=== PATIENT | female | born 1980 | race Hispanic/Latino ===

== ENCOUNTER 2018-04-13 21:48 | Emergency (ER) | payer MEDICAID ==
[~2018-04-13] VITALS: Ht 154.9 cm; Wt 65.2 kg
[2018-04-13 23:35] LABS: HEMATOCRIT 37.1 % (37.0-47.0); HEMOGLOBIN 12.2 g/dl (12.0-16.0); IMMATURE GRANULOCYTES 0.3 % (0.0-5.0); MEAN CELL VOLUME 88.5 fL CALC (80.0-100.0); MEAN CORPUSCULAR HGB 29.1 pG CALC (26.0-32.0); MEAN CORPUSCULAR HGB CONC 32.9 g/L CALC (32.0-36.0); NEUT# 4.14 thou/uL (2.00-7.15); RED BLOOD COUNT 4.19 mill/uL (4.20-5.60); RED CELL DISTRI WIDTH 12.6 % (11.5-15.5)
[2018-04-13 23:52] LABS: ALBUMIN 4.2 g/dL (3.2-5.0); ALKALINE PHOSPHATASE 65 u/l (38-126); AMYLASE 54 u/l (30-110); ANION GAP 13 (6-22 (CALC)); BILIRUBIN, TOTAL 0.2 mg/dL (0.0-1.4); BUN 10 mg/dL (7-17); BUN/CREATININE RATIO 18 (12-20 (CALC)); CARBON DIOXIDE 27 mmol/l (22-30); CHLORIDE 104 mmol/l (95-108); CREATININE 0.6 mg/dL (0.5-1.0); GFR > 60 ML/MIN (>=60 (CALC)); GFR FOR AFR.AMER. > 60 ML/MIN (>=60 (CALC)); LIPASE 164 u/l (23-300); SGOT/AST 19 u/l (14-36); SODIUM 139 mmol/l (137-146); TOTAL PROTEIN 7.2 g/dL (6.3-8.2)
[2018-04-14 00:26] LABS: URINE BILIRUBIN - DIPSTICK NEGATIVE (NEGATIVE); URINE BLOOD DIPSTICK NEGATIVE (NEGATIVE); URINE COLOR YELLOW; URINE GLUCOSE - DIPSTICK NEGATIVE (NEGATIVE); URINE KETONE NEGATIVE (NEGATIVE); URINE LEUK ESTERASE NEGATIVE (NEGATIVE); URINE NITRITE - DIPSTICK NEGATIVE (Negative); URINE PH 6.5 (4.5-8.0); URINE PROTEIN - DIPSTICK NEGATIVE (NEG-TRACE); URINE SPECIFIC GRAVITY <=1.005; URINE UROBILINOGEN - DIPSTICK 0.2 E.U./dL (0.2)
[2018-04-14] MEDS ORDERED: PHENERGAN25 MG/TAB PO (00:51)
[2018-04-14] MEDS ORDERED: LOMOTIL2.5 MG PO (00:51)
[2018-04-14 01:02] VITALS: BP 118/69
== END 2018-04-14 01:00 | disposition home or self-care (01) ==
LOC: ED 21:48
PROVIDERS: Family Medicine
DX: A08.4 Viral intestinal infection, unspecified (principal); R11.2 Nausea with vomiting, unspecified; R19.7 Diarrhea, unspecified; R10.13 Epigastric pain

== ENCOUNTER 2018-06-06 19:06 | Emergency (ER) | payer OTHER ==
[~2018-06-06] VITALS: Ht 154.9 cm; Wt 64.8 kg
[~2018-06-06 19:06] MED LIST: LOMOTIL2.5 MG PO; PHENERGAN25 MG/TAB PO
[2018-06-06] MEDS ORDERED: CODEINE/GUAIFEN1 SOL PO (21:34)
[2018-06-06 21:40] VITALS: BP 122/70
== END 2018-06-06 21:40 | disposition home or self-care (01) ==
LOC: ED 19:06
DX: J06.9 Acute upper respiratory infection, unspecified (principal); R50.9 Fever, unspecified; R05 Cough; J34.89 Other specified disorders of nose and nasal sinuses

== ENCOUNTER 2018-11-21 13:36 | Emergency (ER) | payer OTHER ==
[~2018-11-21] VITALS: Ht 154.9 cm; Wt 75.0 kg
[~2018-11-21 13:36] MED LIST changes: +CODEINE/GUAIFEN1 SOL PO
[2018-11-21] MEDS ORDERED: AMOXICILLIN875 MG PO (15:01)
[2018-11-21 15:20] VITALS: BP 129/74
== END 2018-11-21 15:20 | disposition home or self-care (01) ==
LOC: ED 13:36
DX: J02.9 Acute pharyngitis, unspecified (principal); R50.9 Fever, unspecified; R52 Pain, unspecified

== ENCOUNTER 2018-12-02 23:46 | Observation (INO) | payer OTHER ==
[~2018-12-02] VITALS: Ht 154.9 cm; Wt 71.4 kg
[~2018-12-02 23:46] MED LIST changes: +AMOXICILLIN875 MG PO
[2018-12-03 00:31] LABS: HEMATOCRIT 36.6 % (37.0-47.0); HEMOGLOBIN 12.1 g/dl (12.0-16.0); IMMATURE GRANULOCYTES 0.5 % (0.0-5.0); MEAN CELL VOLUME 88.2 fL CALC (80.0-100.0); MEAN CORPUSCULAR HGB 29.2 pG CALC (26.0-32.0); MEAN CORPUSCULAR HGB CONC 33.1 g/L CALC (32.0-36.0); NEUT# 13.02 thou/uL (2.00-7.15); RED BLOOD COUNT 4.15 mill/uL (4.20-5.60); RED CELL DISTRI WIDTH 13.5 % (11.5-15.5)
[2018-12-03 00:41] LABS: ALBUMIN 4.1 g/dL (3.2-5.0); ALKALINE PHOSPHATASE 88 u/l (38-126); AMYLASE 78 u/l (30-110); ANION GAP 14 (6-22 (CALC)); BILIRUBIN, TOTAL 0.3 mg/dL (0.0-1.4); BUN 13 mg/dL (7-17); BUN/CREATININE RATIO 21 (12-20 (CALC)); CARBON DIOXIDE 25 mmol/l (22-30); CHLORIDE 104 mmol/l (95-108); CREATININE 0.6 mg/dL (0.5-1.0); GFR > 60 ML/MIN (>=60 (CALC)); GFR FOR AFR.AMER. > 60 ML/MIN (>=60 (CALC)); LIPASE 86 u/l (23-300); SGOT/AST 20 u/l (14-36); SODIUM 139 mmol/l (137-146); TOTAL PROTEIN 7.4 g/dL (6.3-8.2)
[2018-12-03 00:49] LABS: URINE BILIRUBIN - DIPSTICK NEGATIVE (NEGATIVE); URINE BLOOD DIPSTICK NEGATIVE (NEGATIVE); URINE COLOR YELLOW; URINE GLUCOSE - DIPSTICK NEGATIVE (NEGATIVE); URINE KETONE NEGATIVE (NEGATIVE); URINE LEUK ESTERASE NEGATIVE (NEGATIVE); URINE NITRITE - DIPSTICK NEGATIVE (Negative); URINE PROTEIN - DIPSTICK NEGATIVE (NEG-TRACE); URINE SPECIFIC GRAVITY 1.015
[2018-12-03] MEDS ORDERED: DIPHENHYDRAM25 MG PO (01:39)
[2018-12-03] MEDS ORDERED: DOCUSATE CAL240 MG PO (01:39)
[2018-12-03] MEDS ORDERED: MACROBID100 MG PO (01:40)
[2018-12-03] MEDS ORDERED: CHILD ADVI100 MG/5 M PO (01:40)
[2018-12-03] MEDS ORDERED: ONDANSETRON4 MG PO (01:41)
[2018-12-03] MEDS ORDERED: PREDNISONE10 MG PO (01:42)
[2018-12-03] MEDS ORDERED: PYRIDIUM200 MG PO (01:42)
[2018-12-03 02:34] LABS: HEMATOCRIT 33.1 % (37.0-47.0); HEMOGLOBIN 10.9 g/dl (12.0-16.0); IMMATURE GRANULOCYTES 0.6 % (0.0-5.0); MEAN CELL VOLUME 88.7 fL CALC (80.0-100.0); MEAN CORPUSCULAR HGB 29.2 pG CALC (26.0-32.0); MEAN CORPUSCULAR HGB CONC 32.9 g/L CALC (32.0-36.0); NEUT# 16.77 thou/uL (2.00-7.15); RED BLOOD COUNT 3.73 mill/uL (4.20-5.60); RED CELL DISTRI WIDTH 13.4 % (11.5-15.5)
[2018-12-03 05:25] VITALS: BP 115/63
[2018-12-03 07:55] VITALS: BP 97/55
[2018-12-03 14:35] VITALS: BP 97/59
[2018-12-03 19:42] VITALS: BP 99/48
[2018-12-04 03:53] VITALS: BP 118/57
[2018-12-04 05:25] LABS: HEMATOCRIT 34.6 % (37.0-47.0); HEMOGLOBIN 11.3 g/dl (12.0-16.0); IMMATURE GRANULOCYTES 0.5 % (0.0-5.0); MEAN CELL VOLUME 88.7 fL CALC (80.0-100.0); MEAN CORPUSCULAR HGB CONC 32.7 g/L CALC (32.0-36.0); NEUT# 5.81 thou/uL (2.00-7.15); RED BLOOD COUNT 3.9 mill/uL (4.20-5.60); RED CELL DISTRI WIDTH 13.3 % (11.5-15.5)
[2018-12-04 05:46] LABS: ALBUMIN 3.5 g/dL (3.2-5.0); ALKALINE PHOSPHATASE 80 u/l (38-126); ANION GAP 11 (6-22 (CALC)); BILIRUBIN, TOTAL 0.2 mg/dL (0.0-1.4); BUN 8 mg/dL (7-17); BUN/CREATININE RATIO 16 (12-20 (CALC)); CARBON DIOXIDE 28 mmol/l (22-30); CHLORIDE 103 mmol/l (95-108); CREATININE 0.5 mg/dL (0.5-1.0); GFR > 60 ML/MIN (>=60 (CALC)); GFR FOR AFR.AMER. > 60 ML/MIN (>=60 (CALC)); POTASSIUM 4.2 mmol/l (3.5-5.1); SGOT/AST 17 u/l (14-36); SODIUM 137 mmol/l (137-146); TOTAL PROTEIN 6.6 g/dL (6.3-8.2)
[2018-12-04 07:57] VITALS: BP 113/73
[2018-12-04 14:22] VITALS: BP 99/55
[2018-12-04 16:06] VITALS: BP 113/50
[2018-12-04 19:06] VITALS: BP 101/65
[2018-12-05 03:38] VITALS: BP 118/74
[2018-12-05 08:02] VITALS: BP 105/68
[2018-12-05 09:07] LABS: HEMATOCRIT 37.8 % (37.0-47.0); HEMOGLOBIN 12.4 g/dl (12.0-16.0); IMMATURE GRANULOCYTES 0.4 % (0.0-5.0); MEAN CELL VOLUME 88.5 fL CALC (80.0-100.0); MEAN CORPUSCULAR HGB CONC 32.8 g/L CALC (32.0-36.0); NEUT# 6.15 thou/uL (2.00-7.15); RED BLOOD COUNT 4.27 mill/uL (4.20-5.60); RED CELL DISTRI WIDTH 13.2 % (11.5-15.5)
[2018-12-05] MEDS ORDERED: LORTAB5 PO (11:32)
== END 2018-12-05 14:32 | disposition home or self-care (01) ==
LOC: ED 23:46 → ED-I 12-03 04:39 → ED 12-03 04:58 → MS2 12-03 04:59
PROVIDERS: Emergency Medicine; Nurse Practitioner Family; ADMIT Internal Medicine; ATTEND Internal Medicine
DX: K59.09 Other constipation (principal); D72.829 Elevated white blood cell count, unspecified; Z90.710 Acquired absence of both cervix and uterus; Z90.79 Acquired absence of other genital organ(s); Z90.722 Acquired absence of ovaries, bilateral; Z23 Encounter for immunization
CPT/HCPCS: G0378; Q9967

== ENCOUNTER 2019-01-07 09:19 | Emergency (ER) | payer OTHER ==
[~2019-01-07] VITALS: Ht 154.9 cm; Wt 70.0 kg
[~2019-01-07 09:19] MED LIST changes: +CHILD ADVI100 MG/5 M PO; +DIPHENHYDRAM25 MG PO; +DOCUSATE CAL240 MG PO; +LORTAB5 PO; +MACROBID100 MG PO; +ONDANSETRON4 MG PO; +PREDNISONE10 MG PO; +PYRIDIUM200 MG PO
[2019-01-07] MEDS ORDERED: ESTRADIOL1 MG PO (09:33)
[2019-01-07] MEDS ORDERED: IMIPRAM HCL PO (09:33)
[2019-01-07] MEDS ORDERED: ZITHROMAX250 MG PO (09:41)
[2019-01-07] MEDS ORDERED: CODEINE/GUAIFEN1 SOL PO (09:41)
[2019-01-07 09:50] VITALS: BP 121/71
== END 2019-01-07 10:04 | disposition home or self-care (01) ==
LOC: ED 09:19
DX: J20.9 Acute bronchitis, unspecified (principal); J04.0 Acute laryngitis

== ENCOUNTER 2019-02-16 12:41 | Emergency (ER) | payer OTHER ==
[~2019-02-16 12:41] MED LIST changes: +ESTRADIOL1 MG PO; +IMIPRAM HCL PO; +ZITHROMAX250 MG PO
[2019-02-16] MEDS ORDERED: PREDNISONE50 MG PO (13:43)
[2019-02-16] MEDS ORDERED: ZYRTEC10 M5 PO (13:43)
[2019-02-16 14:09] VITALS: BP 115/65
== END 2019-02-16 14:09 | disposition home or self-care (01) ==
LOC: ED 12:41
DX: T78.40XA Allergy, unspecified, initial encounter (principal); X58.XXXA Exposure to other specified factors, initial encounter

== ENCOUNTER 2019-03-13 09:38 | Emergency (ER) | payer OTHER ==
[~2019-03-13 09:38] MED LIST changes: +PREDNISONE50 MG PO; +ZYRTEC10 M5 PO
[2019-03-13 10:26] VITALS: BP 122/77
== END 2019-03-13 10:26 | disposition home or self-care (01) ==
LOC: ED 09:38
DX: T78.40XA Allergy, unspecified, initial encounter (principal); X58.XXXA Exposure to other specified factors, initial encounter

== ENCOUNTER 2020-02-26 09:36 | Emergency (ER) | payer OTHER ==
[~2020-02-26] VITALS: Ht 154.9 cm; Wt 75.0 kg
[2020-02-26 10:30] LABS: HEMATOCRIT 40.3 % (37.0-47.0); HEMOGLOBIN 13.1 g/dl (12.0-16.0); IMMATURE GRANULOCYTES 0.3 % (0.0-5.0); MEAN CELL VOLUME 90.6 fL CALC (80.0-100.0); MEAN CORPUSCULAR HGB 29.4 pG CALC (26.0-32.0); MEAN CORPUSCULAR HGB CONC 32.5 g/dL CAL (32.0-36.0); NEUT# 9.18 thou/uL (2.00-7.15); RED BLOOD COUNT 4.45 mill/uL (4.20-5.60); RED CELL DISTRI WIDTH 12.9 % (11.5-15.5)
[2020-02-26 10:39] LABS: URINE BILIRUBIN - DIPSTICK NEGATIVE (NEGATIVE); URINE BLOOD DIPSTICK NEGATIVE (NEGATIVE); URINE COLOR YELLOW; URINE GLUCOSE - DIPSTICK NEGATIVE (NEGATIVE); URINE KETONE NEGATIVE (NEGATIVE); URINE LEUK ESTERASE NEGATIVE (NEGATIVE); URINE NITRITE - DIPSTICK NEGATIVE (Negative); URINE PROTEIN - DIPSTICK NEGATIVE (NEG-TRACE); URINE UROBILINOGEN - DIPSTICK 0.2 E.U./dL (0.2)
[2020-02-26 10:51] LABS: ALBUMIN 4.2 g/dL (3.2-5.0); ALKALINE PHOSPHATASE 90 u/l (38-126); ANION GAP 10 (6-22 (CALC)); BUN 10 mg/dL (7-17); BUN/CREATININE RATIO 18 (12-20 (CALC)); CARBON DIOXIDE 27 mmol/l (22-30); CHLORIDE 106 mmol/l (95-108); CREATININE 0.6 mg/dL (0.5-1.0); GFR > 60 ML/MIN (>=60 (CALC)); GFR FOR AFR.AMER. > 60 ML/MIN (>=60 (CALC)); LIPASE 77 u/l (23-300); POTASSIUM 4.1 mmol/l (3.5-5.1); SODIUM 138 mmol/l (137-146); TOTAL PROTEIN 7.6 g/dL (6.3-8.2)
[2020-02-26 10:53] LABS: BILIRUBIN, TOTAL 0.4 mg/dL (0.0-1.4); SGOT/AST 31 u/l (14-36)
[2020-02-26 12:50] VITALS: BP 117/80
[2020-02-26] MEDS ORDERED: ONDANSETRON4 MG PO (12:55)
[2020-02-26] MEDS ORDERED: PHENERGAN25 MG/TAB PO (12:55)
== END 2020-02-26 13:09 | disposition home or self-care (01) ==
LOC: ED 09:36
PROVIDERS: Family Medicine
DX: K52.9 Noninfective gastroenteritis and colitis, unspecified (principal); Z20.822 Contact with and (suspected) exposure to COVID-19
CPT/HCPCS: Q9967

== ENCOUNTER 2020-04-20 04:55 | Emergency (ER) | payer OTHER ==
[~2020-04-20] VITALS: Ht 157.5 cm; Wt 73.0 kg
[2020-04-20] MEDS ORDERED: OMEPRAZOLE DR40 MG PO (05:23)
[2020-04-20] MEDS ORDERED: DICLOFENAC75 MG PO (05:23)
[2020-04-20 05:58] LABS: HEMATOCRIT 38.6 % (37.0-47.0); HEMOGLOBIN 12.6 g/dl (12.0-16.0); IMMATURE GRANULOCYTES 0.3 % (0.0-5.0); MEAN CORPUSCULAR HGB 29.4 pG CALC (26.0-32.0); MEAN CORPUSCULAR HGB CONC 32.6 g/dL CAL (32.0-36.0); NEUT# 4.07 thou/uL (2.00-7.15); RED BLOOD COUNT 4.29 mill/uL (4.20-5.60)
[2020-04-20 06:11] LABS: ALKALINE PHOSPHATASE 97 u/l (38-126); AMYLASE 60 u/l (30-110); ANION GAP 12 (6-22 (CALC)); BUN 12 mg/dL (7-17); BUN/CREATININE RATIO 20 (12-20 (CALC)); CARBON DIOXIDE 28 mmol/l (22-30); CHLORIDE 102 mmol/l (95-108); CREATININE 0.6 mg/dL (0.5-1.0); GFR > 60 ML/MIN (>=60 (CALC)); GFR FOR AFR.AMER. > 60 ML/MIN (>=60 (CALC)); LIPASE 125 u/l (23-300); POTASSIUM 3.8 mmol/l (3.5-5.1); SODIUM 138 mmol/l (137-146); TOTAL PROTEIN 7.3 g/dL (6.3-8.2)
[2020-04-20 06:21] LABS: BILIRUBIN, TOTAL 0.6 mg/dL (0.0-1.4); SGOT/AST 66 u/l (14-36)
[2020-04-20 09:01] VITALS: BP 123/78
== END 2020-04-20 09:26 | disposition home or self-care (01) ==
LOC: ED 04:55
PROVIDERS: Emergency Medicine
DX: R10.13 Epigastric pain (principal); Z90.710 Acquired absence of both cervix and uterus; Z79.890 Hormone replacement therapy
CPT/HCPCS: Q9967; S0164

== ENCOUNTER 2020-12-02 14:48 | Emergency (ER) | payer OTHER ==
[~2020-12-02] VITALS: Ht 157.5 cm; Wt 70.0 kg
[~2020-12-02 14:48] MED LIST changes: +DICLOFENAC75 MG PO; +OMEPRAZOLE DR40 MG PO
[2020-12-02 15:44] LABS: URINE BILIRUBIN - DIPSTICK NEGATIVE (NEGATIVE); URINE BLOOD DIPSTICK NEGATIVE (NEGATIVE); URINE COLOR ORANGE; URINE GLUCOSE - DIPSTICK 100 mg/dL (NEGATIVE); URINE KETONE NEGATIVE (NEGATIVE); URINE LEUK ESTERASE MODERATE (Negative); URINE NITRITE - DIPSTICK POSITIVE (Negative); URINE PROTEIN - DIPSTICK 30 mg/dL (NEG-TRACE); URINE SPECIFIC GRAVITY 1.025
[2020-12-02 15:54] LABS: URINE CLARITY HAZY
[2020-12-02 15:55] LABS: URINE RBC 0-2 RBC/hpf (0-5); URINE SQUAMOUS EPITHELIAL CELL MODERATE EPI/hpf (0-FEW)
[2020-12-02] MEDS ORDERED: PYRIDIUM200 MG PO (16:13)
[2020-12-02] MEDS ORDERED: KEFLEX500 MG PO (16:13)
[2020-12-02 16:25] VITALS: BP 125/66
--- NOTE | 2020-12-04 15:20 | NUR ---
GHULAM IN PACU TRANSLATED AND INSTRUCTED PT TO START FLUCONAZOLE. SEE ED DOCUMENTATION FROM TODAY FOR MORE INFO
== END 2020-12-02 16:37 | disposition home or self-care (01) ==
LOC: ED 14:48
DX: B37.49 Other urogenital candidiasis (principal); M06.9 Rheumatoid arthritis, unspecified; Z79.890 Hormone replacement therapy; Z90.710 Acquired absence of both cervix and uterus